=== PATIENT | male | born 1965 | race Caucasian/White ===

== ENCOUNTER → 2016-08-24 | Outpatient (CLI) | payer OTHER ==
--- NOTE | 2016-08-24 22:16 | US ---
EXAMINATION TYPE: US carotid duplex BILAT DATE OF EXAM: 08/24/2016 COMPARISON: NONE CLINICAL HISTORY: R22.1 Neck mass Left, R09.89 Carotid Bruit. Headaches, bruit, swelling left neck ne ar clavicle EXAM MEASUREMENTS: RIGHT: Peak Systolic Velocity (PSV) cm/sec ----- Right CCA: 95.3 ----- Right ICA: 80.9 ----- Right ECA: 146.3 ICA/CCA ratio: 0.8 RIGHT: End Diastole cm/sec ----- Right CCA: 35.7 ----- Right ICA: 39.1 ----- Right ECA: 25.2 LEFT: Peak Systolic Velocity (PSV) cm/sec ----- Left CCA: 127.3 ----- Left ICA: 88.6 ----- Left ECA: 106.9 ICA/CCA ratio: 0.7 LEFT: End Diastole cm/sec ----- Left CCA: 43.0 ----- Left ICA: 36.9 ----- Left ECA: 26.7 VERTEBRALS (direction of flow): Right Vertebral: Antegrade Left Vertebral: Antegrade Mildly increased velocities noted right ECA. No evidence of significant stenosis. Scanned left neck n ear clavicle (area of swelling), 2 hyperechoic areas noted measuring 0.8 x 0.7 x 0.8cm and 0.4 x 0.5 x 0.4cm Grayscale images show no significant focal plaque at carotid bulb level. Scanning of palpable abnorma lity shows nonspecific subcentimeter hyperechoic areas marked by technologist most likely benign in e tiology, consider subcutaneous lipomas. Consider further investigation with contrast-enhanced MRI of lesions become painful or enlarge. IMPRESSION: No hemodynamically significant stenosis is seen in either internal carotid artery.
== END | disposition home or self-care (01) ==
LOC: RADUSWWP 15:38
PROVIDERS: ATTEND Family Medicine
DX: R22.1 Localized swelling, mass and lump, neck (principal); R09.89 Other specified symptoms and signs involving the circulatory and respiratory systems
CPT/HCPCS: 93880

== ENCOUNTER 2016-10-03 11:21 | Emergency (ER) | payer OTHER ==
[2016-10-03 11:33] VITALS: BP 129/76; PULSE 69; RESP 16; TEMP 99.2
--- NOTE | 2016-10-03 12:22 | ED ---
Skin/Abscess/FB HPI - General Chief complaint: Skin/Abscess/Foreign Body Stated complaint: poss tick attatched to scalp Time Seen by Provider: 10/03/16 12:01 Source: patient, RN notes reviewed Mode of arrival: ambulatory Limitations: no limitations - History of Present Illness Initial comments: 51-year-old male presents emergency Department chief complaint possible taken scalp. Patient states over the last few days he noticed a lump on top of his head. Patient states he did pick at it. He states he got there is some redness. Patient states that he does not remember seeing a take though. Patient had no fever no chills denies any headache or dizziness. - Related Data Allergies Allergy/AdvReac Type Severity Reaction Status Date / Time No Known Allergies Allergy Verified 10/03/16 11:30 Review of Systems ROS Statement: Those systems with pertinent positive or pertinent negative responses have been documented in the HPI. ROS Other: All systems not noted in ROS Statement are negative. Past Medical History Past Medical History: No Reported History Past Surgical History: No Surgical Hx Reported Past Psychological History: No Psychological Hx Reported Smoking Status: Current every day smoker Past Alcohol Use History: Occasional Past Drug Use History: None Reported General Exam Limitations: no limitations General appearance: alert, in no apparent distress Head exam: Present: atraumatic, normocephalic. Absent: normal inspection (Scab noted to the top of the head with no evidence of erythema no evidence of foreign body or tick) Eye exam: Present: normal appearance, PERRL, EOMI. Absent: scleral icterus, conjunctival injection, periorbital swelling ENT exam: Present: normal exam, normal oropharynx, mucous membranes moist, TM's normal bilaterally, normal external ear exam Neck exam: Present: normal inspection, full ROM. Absent: tenderness, meningismus, lymphadenopathy Respiratory exam: Present: normal lung sounds bilaterally. Absent: respiratory distress, wheezes, rales, rhonchi, stridor Cardiovascular Exam: Present: regular rate, normal rhythm, normal heart sounds. Absent: systolic murmur, diastolic murmur, rubs, gallop, clicks Course Vital Signs 10/03/16 11:30 Temperature 99.2 F Pulse Rate 69 Respiratory 16 Rate Blood Pressure 129/76 O2 Sat by Pulse 97 Oximetry Medical Decision Making - Medical Decision Making 51-year-old male presented for scalp lesion. Patient appears to have an abrasion possible ingrown hair underneath the scab. Discussed with patient there is no evidence of a take no evidence of infection at this time. He is advised to follow-up was primary care physician if this lesion does not resolve in 7-10 days that due to his some exposure he may need biopsy. Disposition Clinical Impression: Scalp abrasion Disposition: HOME SELF-CARE Condition: Stable Instructions: Abrasion (ED) Additional Instructions: Please return to the Emergency Department if symptoms worsen or any other concerns. Referrals: Tolu Flores DO [Primary Care Provider] - 1-2 days Time of Disposition: 12:22
== END 2016-10-03 12:29 | disposition home or self-care (01) ==
LOC: EC 11:21
DX: S00.01XA Abrasion of scalp, initial encounter (principal); F17.200 Nicotine dependence, unspecified, uncomplicated; X58.XXXA Exposure to other specified factors, initial encounter
CPT/HCPCS: 99283

== ENCOUNTER 2018-06-15 15:12 | Emergency (ER) | payer OTHER ==
[2018-06-15 15:30] VITALS: RESP 16; TEMP 98.8
--- NOTE | 2018-06-15 16:32 | ED ---
Neck Injury/Pain HPI - General Chief Complaint: Neck Pain/Injury Stated Complaint: Neck pain, lump on collar bone Time Seen by Provider: 06/15/18 15:40 Source: RN notes reviewed, old records reviewed Mode of arrival: ambulatory Limitations: no limitations - History of Present Illness Initial Comments: This 33-year-old male the ER for evaluation. Patient has a for evaluation of neck pain. Patient hasn't had neck. Left shoulder. Otherwise no complaints. Patient has had issues like 3 months. No further evaluation no prior evaluation. No other medical issues. No shortness of breath cough congestion or chest pain MD Complaint: other (Patient feels like he has a lump on his neck) -: days(s) Place: home Radiation: left lateral Severity: mild Consistency: constant, intermittent Improves With: none Worsens With: none - Related Data Home Medications Medication Instructions Recorded Confirmed Aspirin EC [Ecotrin Low Dose] 81 mg PO DAILY 06/15/18 06/15/18 Baclofen [Lioresal] 10 mg PO DAILY PRN 06/15/18 06/15/18 Meloxicam [Mobic] 7.5 mg PO DAILY 06/15/18 06/15/18 Multivitamin,Therapeutic [Thera] 1 tab PO DAILY 06/15/18 06/15/18 Simvastatin [Zocor] 20 mg PO HS 06/15/18 06/15/18 Allergies Allergy/AdvReac Type Severity Reaction Status Date / Time No Known Allergies Allergy Verified 06/15/18 16:00 Review of Systems ROS Statement: Those systems with pertinent positive or pertinent negative responses have been documented in the HPI. ROS Other: All systems not noted in ROS Statement are negative. Past Medical History Past Medical History: No Reported History Additional Past Medical History / Comment(s): high cholestrol. high blood pressure. History of Any Multi-Drug Resistant Organisms: None Reported Past Surgical History: No Surgical Hx Reported Past Psychological History: No Psychological Hx Reported Smoking Status: Current every day smoker Past Alcohol Use History: Rare Past Drug Use History: None Reported General Exam - General Exam Comments Initial Comments: Medical record is reviewed Patient does have some tenderness to his left clavicle area. Limitations: no limitations General appearance: alert, in no apparent distress Head exam: Present: atraumatic, normocephalic, normal inspection Eye exam: Present: normal appearance, PERRL, EOMI. Absent: scleral icterus, conjunctival injection, periorbital swelling ENT exam: Present: normal exam, mucous membranes moist Neck exam: Present: normal inspection. Absent: tenderness, meningismus, lymphadenopathy Respiratory exam: Present: normal lung sounds bilaterally. Absent: respiratory distress, wheezes, rales, rhonchi, stridor Cardiovascular Exam: Present: regular rate, normal rhythm, normal heart sounds. Absent: systolic murmur, diastolic murmur, rubs, gallop, clicks GI/Abdominal exam: Present: soft, normal bowel sounds. Absent: distended, tenderness, guarding, rebound, rigid Extremities exam: Present: normal inspection, full ROM, normal capillary refill. Absent: tenderness, pedal edema, joint swelling, calf tenderness Back exam: Present: normal inspection Neurological exam: Present: alert, oriented X3, CN II-XII intact Psychiatric exam: Present: normal affect, normal mood Skin exam: Present: warm, dry, intact, normal color. Absent: rash Course Vital Signs 06/15/18 06/15/18 06/15/18 15:26 17:55 19:03 Temperature 98.8 F Pulse Rate 68 59 L 77 Respiratory 16 16 16 Rate Blood Pressure 146/96 125/96 134/80 O2 Sat by Pulse 96 98 100 Oximetry Medical Decision Making - Medical Decision Making 53 male the ER for evaluation. Patient presents today for evaluation of left neck pain. CT of neck and chest is negative. Patient can be discharged home - Radiology Data Radiology results: report reviewed (CT neck CT chest negative for acute disease), image reviewed Disposition Clinical Impression: Neck pain Disposition: HOME SELF-CARE Condition: Good Instructions (If sedation given, give patient instructions): Neck Pain (ED) Is patient prescribed a controlled substance at d/c from ED?: No Referrals: Tolu Flores DO [Primary Care Provider] - 1-2 days
--- NOTE | 2018-06-15 17:53 | CT ---
EXAMINATION TYPE: CT neck chest without con DATE OF EXAM: 06/15/2018 COMPARISON: None HISTORY: Left side supraclavicular and neck swelling and pain. CT DLP: 994 mGycm Automated exposure control for dose reduction was used. FINDINGS: Multiple axial sections were obtained from the frontal sinuses to the diaphragm with no contrast. There is no evidence of orbital mass. Parotid glands are symmetric. Submandibular salivary glands are symmetric. There is fairly normal aeration of the visualized paranasal sinuses. Prevertebral soft ti ssues of the neck appear normal. Epiglottis appears normal. There is no evidence of pharyngeal mass. Tonsils appear normal. There is 5 mm mucous retention cyst lateral left maxillary sinus. There is 8 m m mucous retention cyst posterior left maxillary sinus. There is no cervical adenopathy. Thyroid gland is symmetric. I see no pathologic fluid collection. Th ere is no discrete neck mass. I see no supraclavicular lymphadenopathy. There is a single 8 mm left side supraclavicular lymph node. This is in the area of the marker on the skin at the area of concern.. There is normal branching pattern of the great vessels on the aortic arch. There is no evidence of me diastinal adenopathy. Heart size is normal. There is no pericardial effusion. There are no hilar mass es. The lungs are clear of infiltrate. There is no evidence of a pulmonary mass. There is no pleural effu raoul. There is no pericardial effusion. There are mild spondylotic changes in the cervical and thorac ic spine. There is no compression fracture. IMPRESSION: NEGATIVE CT SCAN OF THE NECK. NEGATIVE CT SCAN OF THE CHEST. NO EVIDENCE OF A MASS. NO ADENOPATHY.
[2018-06-15 19:04] VITALS: BP 134/80; PULSE 77
--- NOTE | 2018-06-16 08:11 | CDI ---
Documentation Clarification OP Dear Drew LOMELI, DO Please do addendum to ED report for missing HPI and Physical examination. Thank you, Jennifer Chester [employer] Re[employer] Manager If you have any questions, please contact Transitional Kindergarten Teacher at [phone] [facility]
== END 2018-06-15 19:03 | disposition home or self-care (01) ==
LOC: EC 15:12
DX: M54.2 Cervicalgia (principal); E78.00 Pure hypercholesterolemia, unspecified; F17.200 Nicotine dependence, unspecified, uncomplicated; Z79.82 Long term (current) use of aspirin; Z79.1 Long term (current) use of non-steroidal anti-inflammatories (NSAID); Z79.899 Other long term (current) drug therapy
CPT/HCPCS: 70490; 71250; 99284

== ENCOUNTER 2023-10-15 17:22 | Emergency (ER) | payer OTHER ==
--- NOTE | 2023-10-15 17:27 | ED ---
Abdominal Pain HPI <Mary Gonzales - Last Filed: 10/16/23 01:07> - General Source: patient, RN notes reviewed <Clover Padgett - Last Filed: 10/16/23 03:29> - General Stated Complaint: Abdominal Pain Time Seen by Provider: 10/15/23 17:41 - History of Present Illness Initial Comments: 58 year old male reports symptoms of nausea, vomiting and abd pain x 1 week. He thought originally he got food poisoning but symptoms have not resolved. He felt constipation and then took ex-lax. Patient is now reporting generalized abd pain. No fevers (Mary Gonzales) 58-year-old male presents emergency department chief complaint of nausea, vomiting, diarrhea and abdominal pain over the past week. Is concerned that he may have gotten food poisoning from a family cookout that occurred last week. States that he is taking the Ex-Lax at home with minimal relief. States that he has generalized abdominal pain. He denies fevers, chills, chest pain or pressure, headaches. Patient denies dysuria, hematuria or recent urinary frequency or urgency. Denies previous surgical abdominal history. (Clover Padgett) - Related Data Home Medications Medication Instructions Recorded Confirmed Aspirin EC [Ecotrin Low Dose] 81 mg PO DAILY 06/15/18 06/15/18 Baclofen [Lioresal] 10 mg PO DAILY PRN 06/15/18 06/15/18 Meloxicam [Mobic] 7.5 mg PO DAILY 06/15/18 06/15/18 Multivitamin,Therapeutic [Thera] 1 tab PO DAILY 06/15/18 06/15/18 Simvastatin [Zocor] 20 mg PO HS 06/15/18 06/15/18 Allergies Allergy/AdvReac Type Severity Reaction Status Date / Time bee venom protein (honey bee) Allergy Swelling Verified 10/15/23 17:32 Review of Systems ROS Other: All systems not noted in ROS Statement are negative. <Mary Gonzales - Last Filed: 10/16/23 01:07> ROS Other: All systems not noted in ROS Statement are negative. <Clover Padgett - Last Filed: 10/16/23 03:29> ROS Statement: Those systems with pertinent positive or pertinent negative responses have been documented in the HPI. Past Medical History Past Medical History: No Reported History Additional Past Medical History / Comment(s): high cholestrol. high blood pressure. History of Any Multi-Drug Resistant Organisms: None Reported Past Surgical History: No Surgical Hx Reported Past Psychological History: No Psychological Hx Reported Past Alcohol Use History: Rare Past Drug Use History: None Reported <Mary Gonzales - Last Filed: 10/16/23 01:07> General Exam <Mary Gonzales - Last Filed: 10/16/23 01:07> General appearance: alert, in no apparent distress Head exam: Present: atraumatic, normocephalic, normal inspection Eye exam: Present: normal appearance, PERRL, EOMI. Absent: scleral icterus, conjunctival injection, periorbital swelling ENT exam: Present: normal exam, mucous membranes moist Neck exam: Present: normal inspection. Absent: tenderness, meningismus, lymphadenopathy Respiratory exam: Present: normal lung sounds bilaterally. Absent: respiratory distress, wheezes, rales, rhonchi, stridor Cardiovascular Exam: Present: regular rate, normal rhythm, normal heart sounds. Absent: systolic murmur, diastolic murmur, rubs, gallop, clicks GI/Abdominal exam: Present: soft, tenderness (diffuse). Absent: distended, guarding, rebound, rigid Extremities exam: Present: normal inspection, full ROM, normal capillary refill. Absent: tenderness, pedal edema, joint swelling, calf tenderness Back exam: Present: normal inspection Neurological exam: Present: alert, oriented X3, CN II-XII intact Psychiatric exam: Present: normal affect, normal mood Skin exam: Present: warm, dry, intact, normal color. Absent: rash <Clover Padgett - Last Filed: 10/16/23 03:29> - General Exam Comments Initial Comments: Visual Physical Exam Vital signs reviewed General: Well-appearing, nontoxic, no acute distress. Head: Normocephalic, atraumatic Eyes: PERRLA, EOMI ENT: Airway patent Chest: Nonlabored breathing Skin: No visual rash, normal skin tone Neuro: Alert and oriented 3 Musculoskeletal: No gross abnormalities (Mary Gonzales) Course Vital Signs 10/15/23 10/15/23 17:31 21:52 Temperature 98.5 F Pulse Rate 61 54 L Respiratory 18 18 Rate Blood Pressure 138/88 155/91 O2 Sat by Pulse 98 99 Oximetry Medical Decision Making - Lab Data Result diagrams: 10/15/23 17:41 10/15/23 17:41 <Mary Gonzales - Last Filed: 10/16/23 01:07> - Lab Data Result diagrams: 10/15/23 17:41 10/15/23 17:41 <Clover Padgett - Last Filed: 10/16/23 03:29> - Medical Decision Making I performed a quick note on this patient - Mary Gonzales DO (Mary Gonzales) Was pt. sent in by a medical professional or institution (, PA, HEDDLER TIER, urgent care, hospital, or correction...) When possible be specific @ -No Did you speak to anyone other than the patient for history (EMS, parent, family, police, friend...)? What history was obtained from this source @ -No Did you review nursing and triage notes (agree or disagree)? Why? @ -I reviewed and agree with nursing and triage notes Were old charts reviewed (outside hosp., previous admission, EMS record, old EKG, old radiological studies, urgent care reports/EKG's, correction records)? Report findings @ -No old charts were reviewed Differential Diagnosis (chest pain, altered mental status, abdominal pain women, abdominal pain men, vaginal bleeding, weakness, fever, dyspnea, syncope, headache, dizziness, GI bleed, back pain, seizure, CVA, palpatations, mental health, musculoskeletal)? @ -Differential Abdominal Pain Men: Appendicitis, cholecystitis, diverticulosis, ischemic bowel, pancreatitis, hepatitis, UTI, gastroenteritis, AAA, incarcerated hernia, bowel obstruction, constipation, inflammatory bowel, hepatitis, peptic ulcer disease, splenic infarction, perforated viscus, testicular torsion, this is not meant to be an all-inclusive list EKG interpreted by me (3pts min.). @ -none X-rays interpreted by me (1pt min.). @ -None done CT interpreted by me (1pt min.). @ -CT of the abdomen pelvis with contrast reveals no particular CT findings, overall unremarkable exam. U/S interpreted by me (1pt. min.). @ -None done What testing was considered but not performed or refused? (CT, X-rays, U/S, labs)? Why? @ -None What meds were considered but not given or refused? Why? @ -None Did you discuss the management of the patient with other professionals (professionals i.e. , PA, HEDDLER TIER, lab, RT, psych nurse, social psychologist, acidity tester, teacher, civil preparedness training officer, mental health case manager)? Give summary @ -No Was smoking cessation discussed for >3mins.? @ -No Was critical care preformed (if so, how long)? @ -No Were there social determinants of health that impacted care today? How? (Homelessness, low income, unemployed, alcoholism, drug addiction, transportation, low edu. Level, literacy, decrease access to med. care, nursing home, rehab)? @ -No Was there de-escalation of care discussed even if they declined (Discuss DNR or withdrawal of care, Hospice)? DNR status @ -No What co-morbidities impacted this encounter? (DM, HTN, Smoking, COPD, CAD, Cancer, CVA, ARF, Chemo, Hep., AIDS, mental health diagnosis, sleep apnea, morbid obesity)? @ -None Was patient admitted / discharged? Hospital course, mention meds given and route, prescriptions, significant lab abnormalities, going to OR and other pertinent info. @ -discharged. 58-year-old male with abdominal pain. Patient was originally evaluated as a quick note for labs were ordered. On my evaluation the patient he is noted to have diffuse abdominal pain in addition to an elevated lipase therefore CT of the abdomen is ordered to rule out potential acute pancreatitis. He is provided with pain medication. He reveals a mild leukocytosis of 11.2, CMP unremarkable, urinalysis no signs of infection. CT negative for acute process. Discussed with patient at bedside that symptoms are likely secondary to gastroenteritis. Recommend that patient follow brat diet and increase oral rehydration. Recommend patient follows up with primary care provider next week for further evaluation. All questions answered at bedside and strict discussed with the patient has verbalized understanding. Case discussed with Dr. Gonzales Undiagnosed new problem with uncertain prognosis? @ -No Drug Therapy requiring intensive monitoring for toxicity (Heparin, Nitro, Insulin, Cardizem)? @ -No Were any procedures done? @ -No Diagnosis/symptom? @ -abdominal pain Acute, or Chronic, or Acute on Chronic? @ -Acute Uncomplicated (without systemic symptoms) or Complicated (systemic symptoms)? @ -uncomplicated Side effects of treatment? @ -No Exacerbation, Progression, or Severe Exacerbation? @ -No Poses a threat to life or bodily function? How? (Chest pain, [place], [place], pneumonia, PE, COPD, DKA, ARF, appy, cholecystitis, CVA, Diverticulitis, Homicidal, Suicidal, threat to staff... and all critical care pts) @ -No (Clover Padgett) - Lab Data Lab Results 10/15/23 10/15/23 10/15/23 Range/Units 17:41 17:41 17:41 WBC 11.2 H (3.8-10.6) k/uL RBC 4.60 (4.30-5.90) m/uL Hgb 14.3 (13.0-17.5) gm/dL Hct 42.8 (39.0-53.0) % MCV 93.2 (80.0-100.0) fL MCH 31.0 (25.0-35.0) pg MCHC 33.3 (31.0-37.0) g/dL RDW 13.5 (11.5-15.5) % Plt Count 418 (150-450) k/uL MPV 6.5 Neutrophils % 69 % Lymphocytes % 21 % Monocytes % 7 % Eosinophils % 2 % Basophils % 1 % Neutrophils # 7.7 (1.3-7.7) k/uL Lymphocytes # 2.4 (1.0-4.8) k/uL Monocytes # 0.7 (0-1.0) k/uL Eosinophils # 0.2 (0-0.7) k/uL Basophils # 0.1 (0-0.2) k/uL Sodium 137 (137-145) mmol/L Potassium 4.4 (3.5-5.1) mmol/L Chloride 108 H (98-107) mmol/L Carbon Dioxide 21 L (22-30) mmol/L Anion Gap 8 mmol/L BUN 10 (9-20) mg/dL Creatinine 0.82 (0.66-1.25) mg/dL Est GFR (CKD-EPI)AfAm >90 (>60 ml/min/1.73 sqM) Est GFR (CKD-EPI)NonAf >90 (>60 ml/min/1.73 sqM) Glucose 97 (74-99) mg/dL Plasma Lactic Acid Samir (0.7-2.0) mmol/L Calcium 9.6 (8.4-10.2) mg/dL Total Bilirubin 0.5 (0.2-1.3) mg/dL AST 22 (17-59) U/L ALT 26 (4-49) U/L Alkaline Phosphatase 80 (38-126) U/L Total Protein 6.9 (6.3-8.2) g/dL Albumin 4.5 (3.5-5.0) g/dL Lipase 703 H (23-300) U/L Urine Color Light Yellow Urine Appearance Clear (Clear) Urine pH 5.5 (5.0-8.0) Ur Specific Butler 1.016 (1.001-1.035) Urine Protein Negative (Negative) Urine Glucose (UA) Negative (Negative) Urine Ketones Negative (Negative) Urine Blood Small H (Negative) Urine Nitrite Negative (Negative) Urine Bilirubin Negative (Negative) Urine Urobilinogen <2.0 (<2.0) mg/dL Ur Leukocyte Esterase Negative (Negative) Urine RBC 4 (0-5) /hpf Urine WBC <1 (0-5) /hpf Urine Mucus Rare H (None) /hpf 10/15/23 Range/Units 17:41 WBC (3.8-10.6) k/uL RBC (4.30-5.90) m/uL Hgb (13.0-17.5) gm/dL Hct (39.0-53.0) % MCV (80.0-100.0) fL MCH (25.0-35.0) pg MCHC (31.0-37.0) g/dL RDW (11.5-15.5) % Plt Count (150-450) k/uL MPV Neutrophils % % Lymphocytes % % Monocytes % % Eosinophils % % Basophils % % Neutrophils # (1.3-7.7) k/uL Lymphocytes # (1.0-4.8) k/uL Monocytes # (0-1.0) k/uL Eosinophils # (0-0.7) k/uL Basophils # (0-0.2) k/uL Sodium (137-145) mmol/L Potassium (3.5-5.1) mmol/L Chloride (98-107) mmol/L Carbon Dioxide (22-30) mmol/L Anion Gap mmol/L BUN (9-20) mg/dL Creatinine (0.66-1.25) mg/dL Est GFR (CKD-EPI)AfAm (>60 ml/min/1.73 sqM) Est GFR (CKD-EPI)NonAf (>60 ml/min/1.73 sqM) Glucose (74-99) mg/dL Plasma Lactic Acid Samir 0.7 (0.7-2.0) mmol/L Calcium (8.4-10.2) mg/dL Total Bilirubin (0.2-1.3) mg/dL AST (17-59) U/L ALT (4-49) U/L Alkaline Phosphatase (38-126) U/L Total Protein (6.3-8.2) g/dL Albumin (3.5-5.0) g/dL Lipase (23-300) U/L Urine Color Urine Appearance (Clear) Urine pH (5.0-8.0) Ur Specific Butler (1.001-1.035) Urine Protein (Negative) Urine Glucose (UA) (Negative) Urine Ketones (Negative) Urine Blood (Negative) Urine Nitrite (Negative) Urine Bilirubin (Negative) Urine Urobilinogen (<2.0) mg/dL Ur Leukocyte Esterase (Negative) Urine RBC (0-5) /hpf Urine WBC (0-5) /hpf Urine Mucus (None) /hpf Disposition <Mary Gonzales - Last Filed: 10/16/23 01:07> Is patient prescribed a controlled substance at d/c from ED?: No Time of Disposition: 21:37 <Clover Padgett - Last Filed: 10/16/23 03:29> Clinical Impression: Abdominal pain, Gastroenteritis Disposition: HOME SELF-CARE Condition: Good Instructions (If sedation given, give patient instructions): Gastroenteritis (ED), Abdominal Pain (ED) Additional Instructions: Return the emergency department for any new or worsening symptoms. Recommend follow-up with your primary care provider next week for further evaluation. Referrals: None,Stated [Primary Care Provider] - 1-2 days
[2023-10-15 17:32] VITALS: RESP 18; TEMP 98.5
[2023-10-15 18:06] LABS: Basophils # (A) 0.1 k/uL (0-0.2); Basophils % (A) 1 %; Eosinophils # (A) 0.2 k/uL (0-0.7); Eosinophils % (A) 2 %; HCT 42.8 % (39.0-53.0); HGB 14.3 gm/dL (13.0-17.5); Lymphocytes # (A) 2.4 k/uL (1.0-4.8); Lymphocytes % (A) 21 %; MCHC 33.3 g/dL (31.0-37.0); MCV 93.2 fL (80.0-100.0); Mean Platelet Volume 6.5; Monocytes # (A) 0.7 k/uL (0-1.0); Monocytes % (A) 7 %; Neutrophils # (A) 7.7 k/uL (1.3-7.7); Neutrophils % (A) 69 %; Platelet Count 418 k/uL (150-450); RDW 13.5 % (11.5-15.5); WBC 11.2 k/uL (3.8-10.6)
[2023-10-15 18:21] LABS: ALT 26 U/L (4-49); AST 22 U/L (17-59); African American GFR (CKD) >90 (>60 ml/min/1.73 sqM); Albumin 4.5 g/dL (3.5-5.0); Alkaline Phosphatase 80 U/L (38-126); Anion Gap 8 mmol/L; Blood Urea Nitrogen 10 mg/dL (9-20); Calcium 9.6 mg/dL (8.4-10.2); Carbon Dioxide 21 mmol/L (22-30); Chloride 108 mmol/L (98-107); Glucose 97 mg/dL (74-99); Lipase 703 U/L (23-300); Non-African American GFR(CKD) >90 (>60 ml/min/1.73 sqM); Potassium 4.4 mmol/L (3.5-5.1); Sodium 137 mmol/L (137-145); Total Bilirubin 0.5 mg/dL (0.2-1.3); Total Protein 6.9 g/dL (6.3-8.2)
[2023-10-15 19:02] LABS: Appearance,Urine Clear (Clear); Bilirubin,Urine Negative (Negative); Blood,Urine Small (Negative); Color,Urine Light Yellow; Glucose,Urine (UA) Negative (Negative); Ketones,Urine Negative (Negative); Leukocyte Esterase,Urine Negative (Negative); Mucus,Urine Rare /hpf; Nitrite,Urine Negative (Negative); PH, Urine 5.5 (5.0-8.0); Protein,Urine Negative (Negative); RBC,Urine 4 /hpf (0-5); Specific Gravity,Urine 1.016 (1.001-1.035); Urobilinogen,Urine <2.0 mg/dL (<2.0); WBC,Urine <1 /hpf (0-5)
[2023-10-15] MEDS: SODIUM CHLORIDE 0.9% 1,000 ML IV STA (19:31)
[2023-10-15] MEDS: MORPHINE SULFATE 2 MG/ML SYRINGE IVP ONE (19:42)
[2023-10-15] MEDS: ONDANSETRON 4 MG/2 ML VIAL IVP STA (19:42)
--- NOTE | 2023-10-15 21:10 | CT ---
EXAMINATION TYPE: CT abdomen pelvis w con CT DLP: 1205.3 mGycm, Automated exposure control for dose reduction was used. DATE OF EXAM: 10/15/2023 8:15 PM COMPARISON: CT abdomen pelvis most recent from CLINICAL INDICATION:Male, 58 years old with history of abdominal pain, elevated lipase; right upper q uadrant abdominal pain. TECHNIQUE: Axial CT abdomen pelvis w con;Sagittal and coronal reformats were created on a separate w orkstation. Contrast used:100ml mL of Isovue 300 with IV Contrast, (none if empty) Oral contrast used: without Oral Contrast (none if empty) FINDINGS: LOWER CHEST: Unremarkable ABDOMEN LIVER: 8 cm cavernous hemangioma in the right lobe of the liver. Smaller 2 to 3 cm hemangioma in the left lobe. GALLBLADDER AND BILE DUCTS: Unremarkable. PANCREAS: Unremarkable. SPLEEN: Unremarkable. ADRENAL GLANDS: Unremarkable. KIDNEYS AND URETERS: No evidence of hydronephrosis or renal calculus. The ureters are unremarkable. PELVIS BLADDER: Unremarkable REPRODUCTIVE: Unremarkable. ABDOMEN & PELVIS STOMACH AND BOWEL: No evidence of bowel obstruction. PERITONEUM/RETROPERITONEUM: No evidence of pneumoperitoneum or free fluid. VASCULATURE: No evidence of aortic aneurysm. MUSCULOSKELETAL: No acute osseous abnormalities. LYMPH NODES: No gross evidence for lymphadenopathy. SOFT TISSUE/ABDOMINAL WALL: Unremarkable. IMPRESSION: 1. No particular CT finding that would explain the patient's symptoms. Unremarkable exam.
[2023-10-15 21:54] VITALS: BP 155/91; PULSE 54
== END 2023-10-15 21:53 | disposition home or self-care (01) ==
LOC: EC 17:22
DX: K52.9 Noninfective gastroenteritis and colitis, unspecified (principal); D72.829 Elevated white blood cell count, unspecified; R74.8 Abnormal levels of other serum enzymes; Z91.030 Bee allergy status
CPT/HCPCS: 36415; 93005; 80053; 83605; 83690; 85025; 81001; 74177; 99284; 96374; 96375; 96361; J2405; J2270; Q9967